=== PATIENT | male | born 1965 | race African-American/Black ===

== ENCOUNTER 2019-04-13 08:27 | Inpatient (IN) ==
[2019-04-13] MEDS ORDERED: ASPIRIN PO ONE (09:10)
--- NOTE | 2019-04-13 09:13 | EKG Report ---
Test Performed on : 04/13/2019 08:43:38 AM Test Reason : edema Blood Pressure : / mmHG Vent. Rate : 087 BPM Atrial Rate : 087 BPM P-R Int : 130 ms QRS Dur : 084 ms QT Int : 374 ms P-R-T Axes : 070 055 048 degrees QTc Int : 450 ms Normal sinus rhythm. Minimal voltage criteria for LVH, may be normal variant Nonspecific T wave abnormality Abnormal ECG When compared with ECG of 03-OCT-2014 23:53, Previous ECG has undetermined rhythm, needs review ST no longer elevated in Lateral leads Nonspecific T wave abnormality, worse in Inferior leads T wave inversion now evident in Anterior leads Unconfirmed Result
--- NOTE | 2019-04-13 09:49 | Diag Imaging Result Doc PS360 ---
EXAM: CHEST-2 VIEWS 04/13/2019 HISTORY: edema TECHNIQUE: PA and lateral chest COMMENT: There is no evidence of acute cardiac or pulmonary disease. There are no previous studies available for comparison. IMPRESSION: No acute disease. Electronically signed by Dewey Rael 04/13/2019 9:47 AM
[2019-04-13 09:50] LABS: BASO# 0.06 X1000 (0.0-0.2); BASO% 1.1 % (0.0-0.8); EOS# 0.01 X1000 (0.0-0.7); EOS% 0.2 % (0.0-10.0); HEMATOCRIT 48.4 % (42.0-52.0); HEMOGLOBIN 15.8 g/dL (14.0-18.0); LYMPH# 1.23 X1000 (1.2-3.4); LYMPH% 23.3 % (20.5-51.1); MCH 23.4 PG (27-31); MCHC 32.6 g/dL (33-37); MCV 71.8 FL (81-99); MONO# 0.38 X1000 (0.11-0.59); MONO% 7.2 % (1.7-9.3); MPV 12.7 FL (7.4-10.4); NEUT% 68.2 % (42.2-75.2); PLT 178 X1000 (130-400); RBC 6.74 XMIL (4.7-6.1); RDW 14.9 % (11.5-14.5); WBC 5.28 X1000 (4.8-10.8)
[2019-04-13 09:57] LABS: INR 0.99; PROTIME 13.2 Seconds (11.0-16.0)
[2019-04-13 09:58] LABS: PTT 26.5 Seconds (22.3-41.8)
[2019-04-13 10:33] LABS: CK PROFILE 151 U/L (24-204)
[2019-04-13 10:50] LABS: AGAP 13; ALB/GLOB RATIO 1.4; ALBUMIN 3.6 g/dL (3.5-5.0); ALKALINE PHOSPHATASE 125 U/L (32-122); BUN 14 mg/dL (8-22); CALCIUM 9.6 mg/dL (8.8-10.2); CHLORIDE 93 mmol/L (98-107); COSMO 300; CREATININE 1.1 mg/dL (0.7-1.2); ESTIMATED GFR > 60; GLUCOSE 601 mg/dL (70-104); GOT 27 U/L (10-34); GPT 49 U/L (10-44); POTASSIUM 4.6 mmol/L (3.5-5.1); SODIUM 136 mmol/L (136-145); TCO2 30 mmol/L (25-35); TOTAL BILIRUBIN 0.98 mg/dL (0.20-1.00); TOTAL PROTEIN 6.1 g/dL (6.3-8.3)
[2019-04-13] MEDS ORDERED: HUMULIN R IV ONE (10:54)
[2019-04-13 11:48] LABS: URINE SOURCE CLEAN CATCH
[2019-04-13 11:53] LABS: BILIRUBIN URINE NEGATIVE (NEGATIVE); BLOOD URINE NEGATIVE (NEGATIVE); COLOR YELLOW; GLUCOSE URINE >1000 mg/dL (NEGATIVE); KETONE URINE 10 mg/dL (NEGATIVE); LEUKOCYTES URINE NEGATIVE (NEGATIVE); NITRITE URINE NEGATIVE (NEGATIVE); PH URINE 6.5; PROTEIN URINE NEGATIVE (NEGATIVE); SP GRAVITY URINE 1.041; TURBIDITY URINE CLEAR (CLEAR); UROBILINOGEN URINE NORMAL (NORMAL)
[2019-04-13 11:58] LABS: UR EPITHELIAL CELLS <10 /HPF (<10); URINE BACTERIA NEGATIVE /HPF; URINE RBC <10 /HPF (<10); URINE WBC <10 /HPF (<10)
[2019-04-13] MEDS ORDERED: LASIX IV ONE (12:04)
[2019-04-13] MEDS ORDERED: TYLENOL PO PRN (13:40)
[2019-04-13] MEDS ORDERED: ZOFRAN IV PRN (13:40)
--- NOTE | 2019-04-13 15:13 | HISTORY AND PHYSICAL ---
PRIMARY CARE PROVIDER: Dr. Sophie Castro. CHIEF COMPLAINT: Lower extremity swelling. HISTORY OF PRESENT ILLNESS: Mr. Shaun Vera is a 53-year-old, male with a medical history of diabetes mellitus type 2 and hypertension. No history of congestive heart failure, but states back on 03/10/2019, he had a fall, twisted his ankle, and then at the beginning of the year had another fall, which he states was just from losing his balance and hit his knee, but since that time, he has noticed that he has had more swelling in his lower extremities. No swelling anywhere else. He denies having weight gain. Actually states that he has had a 20-pound weight loss since February. He states he has always slept with 2 pillows slightly elevated his whole life, that is nothing new. He went to Sophie Castro last week, who had noticed crackles, and had requested him to come to the emergency department, in which at that time, he did not, but since the swelling and the crackles had increased, he has presented. He denies having shortness of breath or productive cough. States he has been on disability, normally works as a security representative. PAST MEDICAL HISTORY: 1. Diabetes mellitus type 2. 2. Hypertension. PAST SURGICAL HISTORY: None. SOCIAL HISTORY: Denies tobacco, alcohol, or illicit drug use. He has got kids. He is not . He is a security representative, but currently on [employer]. Apparently, he had fallen at work. FAMILY HISTORY: Mother: Diabetes. Father: Diabetes, and he also had a heart attack in his 50s. ALLERGIES: No known drug allergies. HOME MEDICATIONS: Hydrochlorothiazide/lisinopril 20/12.5 mg 2 tablets p.o. daily, and states that he used to take 70/30 insulin, but was most recently prescribed an insulin that he states he could not afford. REVIEW OF SYSTEMS: A 14-point review of systems was complete, and all were negative, except for those mentioned in the above HPI. He denies any chest pain or palpitations. PHYSICAL EXAMINATION: VITAL SIGNS: Temperature 98.9 degrees, heart rate 115, respiratory rate 18, blood pressure 108/78, O2 saturation 100% on room air. Height 5 feet 11 inches tall, 200 pounds. GENERAL: Mr. Shaun Vera is a 53-year-old, male. He is in no acute distress. He is able to answer questions appropriately. HEENT: Atraumatic, normocephalic. Pupils equal, round, reactive to light. Extraocular movements intact. Mucous membranes are moist. NECK: Trachea midline. CARDIOVASCULAR: S1, S2. Tachycardic rate and rhythm. No rubs, gallops, or murmurs. He has got 3+ lower extremity pitting edema. Some JVD. Negative for carotid bruits. PULMONARY: Crackles noted to bilateral bases. No accessory muscle use or work of breathing noted. GASTROINTESTINAL: Soft, nontender, nondistended. Positive bowel sounds x4. EXTREMITIES: Moves all extremities, but decreased range of motion in the lower extremities. SKIN: Warm, dry, intact. NEUROLOGIC: A and O x3. Follows commands. Sensory is intact. LABORATORY DATA: White blood cells 5000, hemoglobin 15, hematocrit 48, platelet count 178,000. INR 0.99, PTT is 26.5. Sodium 136, potassium 4.6, BUN 14, creatinine is 1.1, glucose 601 (now down to 455), calcium 9.6, bilirubin 0.98, AST 27, ALT 49. CK 151. Troponin was 65 (it is down to 50). ProBNP 2857. Albumin 3.6. Urinalysis greater than 1000 glucose, 10 ketones, small acetone. IMAGING: Chest x-ray: No acute disease. EKG: Sinus rhythm, rate 87, QTc 450. ASSESSMENT AND PLAN: 1. Uncontrolled diabetes mellitus type 2. Hemoglobin A1c has been ordered. He received 12 units, which brought him from 601 to 455, and will start him on a sliding scale insulin, low dose for now, diabetic diet. States he was taking insulin, was prescribed an insulin recently that he could not before, but never called to have it changed, so he has been without insulin for over a week. 2. New signs and symptoms of congestive heart failure, diastolic versus systolic. He has got significant lower extremity edema. There are some crackles in the bases, but he denies shortness of breath. ProBNP is elevated. Will go ahead and get him started on some scheduled Lasix. Will get echocardiogram and Cardiology consult. 3. Hypertension. Continue hydrochlorothiazide/lisinopril. 4. Deep venous thrombosis prophylaxis. Lovenox. Dictated by OJSIAH Angel for Louie Bunn MD cc: JOSIAH Angel MD
[2019-04-13] MEDS ORDERED: HUMULIN R SUBQ SCH ×2 (16:00→21:00)
--- NOTE | 2019-04-13 16:20 | PROVIDER DOCUMENTATION ---
This chart was entered by Bing Khalil Scribe, acting as scribe for Ambika Cordero MD. HPI-General Adult - General Chief Complaint: Edema Stated Complaint: FLUID BUILD UP,WHEEZING,DIABETIC Time Seen by Provider: 04/13/19 09:57 Source: patient Allergies/Adverse Reactions: Patient Allergies Allergy/AdvReac Type Severity Reaction Status Date / Time No Known Allergies Allergy Verified 04/13/19 10:36 Home Medications: Home Medication List Medication Instructions Recorded Confirmed Last Taken Type LISINOpril/HCTZ [Prinzide 1 each PO DAILY 10/02/12 04/13/19 04/12/19 22:00 History 20/12.5MG] - History of Present Illness -Gen Adult Nature of Presenting Problems: 53yom presents to ED cc swelling of both lower legs &hands and increased urination. Pt reports he was seen by PCP/Dr. Christen Castro last week, she told pt she heard fluid around heart and wanted him to come to ED and be admitted but he wanted to wait until today. Pt denies F/C/SOB. Pt has hx of DM & HTN. Pt reports family hx of a brother who is currently on dialysis and dad has heart disease. Pt is nontoxic upon exam. Location of Pain/Injury: reports: hand(s) (both hands), lower extremity (both lower legs) Quality of Pain: reports: fullness Severity: reports: moderate Onset/Duration: reports: last week Timing: reports: still present, getting worse Context/Activities at Onset: reports: light activity Modifying Factors: improves with: nothing Associated Symptoms: reports: denies symptoms Similar Symptoms Previously?: Yes Recently seen or treated by another doctor?: Yes (saw PCP/ Dr. Christen Castro last week) Review of Systems - Adult - REVIEW OF SYSTEMS - ADULT Constitutional: reports: see HPI. denies: chills, fever, fatique Eyes: reports: no symptoms reported Ears, Nose, Mouth & Throat: reports: no symptoms reported Cardiovascular: reports: see HPI, edema. denies: chest pain, palpitations Respiratory: reports: see HPI. denies: shortness of breath Gastrointestinal: reports: no symptoms reported Genitourinary: reports: see HPI, frequency. denies: flank pain Musculoskeletal: reports: no symptoms reported Integumentary: reports: see HPI, other (swelling to both lower legs and hands) Neurological: reports: no symptoms reported Psychiatric: reports: no symptoms reported Endocrine: reports: no symptoms reported Hematologic/Lymphatic: reports: no symptoms reported Allergic/Immunologic: reports: no symptoms reported All Other Systems: Reviewed and Negative Past History - Adult - PAST MEDICAL HISTORY-ADULT Review of Records: reports: Nursing Assessment Review, Medications Reviewed, Social history reviewed & non-contributory. Major Childhood Illnesses: reports: denies history Cardiovascular: reports: HTN Respiratory: reports: denies history Gastrointestinal: reports: denies history Obstetrical/Gynecological: reports: denies history Genitourinary: reports: denies history Musculoskeletal: reports: denies history Neurological: reports: denies history Endocrine/Immune: reports: Diabetes Other Conditions: reports: denies history - PRIOR SURGERIES/PROCEDURES Surgical/Procedure History: reports: other (teeth extraction) - IMMUNIZATION STATUS Childhood Immunizations: See Nurse Assessment Flu Vaccine: See Nurse Assessment - FAMILY HISTORY Family History: reviewed, not pertinent Physical Exam-General - PHYSICAL EXAM-ADULT Initial Vital Signs Reviewed: Yes - CONSTITUTIONAL General Appearance: appears well, alert, no apparent distress. negative: anxious, combative - EYES Eyes: PERRL/EOMI, pink conjunctivae. negative: photophobia - HEAD, EARS, NOSE, MOUTH & THROAT HENMT: normocephalic/atraumatic, moist mucous membranes. negative: angioedema - NECK Neck: supple, normal inspection - RESPIRATORY Respiratory: chest non-tender, lungs clear, normal breath sounds, no pleuratic chest pain, no respiratory distress, no accessory muscle use. negative: crackles, rales, rhonchi, stridor, wheezing - CARDIOVASCULAR Cardiovascular: normal peripheral pulses, regular rate, rhythm, no edema, no gallop, no JVD, no murmur. negative: bradycardia, tachycardia - MUSCULOSKELETAL Extremity: swelling (3-4+ pitting edema to both lower legs up to knee). negative: deformity - SKIN Integumentary: normal color, normal turgor, warm/dry. negative: diaphoresis, jaundice, rash - PSYCHIATRIC Psych/Mental Status: normal mood/affect, oriented x 3. negative: anxious, disheveled Progress - PLAN OF CARE/RESULTS Progress/Plan/Lab Results: Vital Signs - 8 hr 04/13/19 08:36 Temperature 98.8 F Pulse Rate 93 H Respiratory Rate 19 Blood Pressure 129/89 O2 Sat by Pulse Oximetry 99 Laboratory Results - last 24 hr 04/13/19 04/13/19 04/13/19 09:25 09:25 09:25 WBC 5.28 RBC 6.74 H Hgb 15.8 Hct 48.4 MCV 71.8 L MCH 23.4 L MCHC 32.6 L RDW Std Deviation 14.9 H Plt Count 178 MPV 12.7 H Immature Gran % (Auto) 0.0 Neut % (Auto) 68.2 Lymph % (Auto) 23.3 Pitt % (Auto) 7.2 Eos % (Auto) 0.2 Baso % (Auto) 1.1 H Immature Gran # (Auto) 0.00 Neut # (Auto) 3.60 Lymph # (Auto) 1.23 Pitt # (Auto) 0.38 Eos # (Auto) 0.01 Baso # (Auto) 0.06 PT 13.2 INR 0.99 PTT (Actin FS) 26.5 Troponin T High Sens 65 H Orders Category Date Time Status Cardiac Monitoring DIRECTED Care 04/13/19 09:10 Active Oxygen Therapy- ED Nursing DIRECTED Care 04/13/19 09:10 Active Saline Loc NOW Care 04/13/19 09:10 Active CHEST-2 VIEWS [RAD] Stat Exams 04/13/19 09:10 Completed CBC WITH ELECTRONIC DIFF [HEME] Stat Lab 04/13/19 09:25 Completed CK PROFILE [SP CHEM] Stat Lab 04/13/19 09:25 Received COMPREHENSIVE METABOLIC PANEL [CHEM] Stat Lab 04/13/19 09:25 Received PRO B-NATRIURETIC PEPTIDE Stat Lab 04/13/19 09:25 Received PROTIME WITH INR [COAG] Stat Lab 04/13/19 09:25 Completed PTT [COAG] Stat Lab 04/13/19 09:25 Completed TROPONIN T HIGH SENSITIVITY Stat Lab 04/13/19 09:25 Completed Aspirin Med 04/13/19 09:10 Discontinued 325 mg PO NOW ONE CP/SOB/Palp >45 yrs of Age Stat Oth 04/13/19 09:10 Ordered EKG [EKG] Stat Ther 04/13/19 09:10 Draft Result Diagrams: 04/13/19 09:25 04/13/19 09:25 - EKG 1 Time of EKG reading by physician:: 08:43 EKG Read and Signed by:: Ambika Cordero EKG Interpretation (*Must complete 3 of following elements*): Abnormal (nonspecific T wave abnormality) Rate: 87 Rhythm: NSR QRS: LVH (minimal voltage) CO Interval: normal - XRAY 1 XRAY: Bilateral XRAY Study: Chest Impression: See EMR Report ( IMPRESSION: No acute disease. Electronically signed by Dewey Real 04/13/2019 9:47 AM) - CONSULTS/PCP/HOSPITALIST Notification #1 *Consult/PCP/Hospitalist*: 1300, JOSIAH Kelleya Time Discussed: 13:15 Consult Disposition: Admit Departure - Departure Date of Disposition Decision: 04/13/19 Time of Disposition Decision: 13:15 DIAGNOSIS: Elevated troponin Acute CHF (congestive heart failure) Qualifiers: Heart failure type: unspecified Qualified Code(s): I50.9 - Heart failure, unspecified Diabetes mellitus with hyperglycemia Qualifiers: Diabetes mellitus type: type 2 Diabetes mellitus terminal gauger insulin use: without terminal gauger use Qualified Code(s): E11.65 - Type 2 diabetes mellitus with hyperglycemia Disposition: ADMITTED INPATIENT 09 Certified Medical Emergency: Emergent Condition: Stable - Critical Care Note This patient required my direct & personal management of CC.: No Attestation - Physician/ QI Attestation Patient care was provided by Advanced Practice Provider:: No The physician spent face to face time with patient:: Yes Advanced Practice Provider documentation review:: Supervising physician onsite and consulted in the evaluation and care of this patient. The physician did have a face to face encounter with the patient. This chart was documented by the indicated scribe, (Bing Khalil Scribe) and accurately reflects the services I performed and decisions made by Gil zhang Tatiana M., MD, as attested by the provider's signature.
--- NOTE | 2019-04-13 16:50 | HISTORY AND PHYSICAL ---
ADDENDUM REPORT SUBJECTIVE: Patient has no major complaints. OBJECTIVE: Vital Signs: Blood pressure is 108/78, heart rate of 115, respiratory rate 18, temperature 98.9 degrees 100% on room air. Cardiovascular: Regular rate and rhythm. Pulmonary: Bilateral breath sounds clear to auscultation. Gastrointestinal: Soft, nontender, nondistended. Bowel sounds are positive. LABORATORY DATA: Sugar was 601. He does have some rales at the bases. He has got 2+ pitting edema, not a lot of protein in his urine, but clinically it looks like he has got heart failure. The chest x-ray does not show pulmonary edema despite an elevation of proBNP. EKG shows LVH which could certainly put him at risk for diastolic dysfunction. He is only on lisinopril hydrochlorothiazide. There is no listed p.o. medications. PROBLEM LIST: 1. Uncontrolled hyperglycemia due to noncompliance. He really has not been able to get followup, but he has missed appointments so he has not been able to be maintained on regular medications. We will continue medicines. He may benefit from metformin. I do think he will probably need insulin. We are doing sliding scale now. Until we have managed to rule out congestive heart failure I think we will probably have to wait on metformin until we know for sure there is nothing there. I will go ahead and start some glipizide in addition to sliding scale. 2. Rule out congestive heart failure. He has features of CHF, could be diastolic systolic. Agree with diuresis. Echo and we will continue to monitor. I am going to hold the hydrochlorothiazide until we know if there is renal failure and we will continue to monitor closely. cc: Louie Bunn MD
[2019-04-13] MEDS: GLUCOTROL PO SCH (16:52)
--- NOTE | 2019-04-13 17:34 | CARDIOLOGY CONSULTATION ---
DATE: 04/13/2019 HISTORY OF PRESENT ILLNESS: 53-year-old -[place]ian gentleman was admitted, has history of hypertension, diabetes. He states on 03/10/2019 he fell and twisted his ankle then at the beginning of the year had another fall from losing balance and hit his knee. He has been noticing increasing pedal edema which has been bilateral. He denies any weight gain. There is no orthopnea. He has noticed no chest pain. He was seen by his primary physician. Basal crackles were noted. He was sent to the emergency room and subsequently admitted. He denies having shortness of breath or productive cough. REVIEW OF SYSTEMS: A 14 point review of system was done:Gastrointestinal System: There is no history of nausea, vomiting, diarrhea. There is no history of hematemesis or melena. Central nervous system: No focal weakness to suggest a CVA, TIA. Genitourinary System: There is no dysuria or hematuria. PAST MEDICAL HISTORY: Hypertension, diabetes. PAST SURGICAL HISTORY: None. HOME MEDICATIONS: Include lisinopril hydrochlorothiazide 20/12.5 one tablet daily. FAMILY HISTORY: Mother had diabetes, father had diabetes. ALLERGIES: He is not known to be allergic to any medication. SOCIAL HISTORY: He denies tobacco or alcohol abuse. PHYSICAL EXAMINATION: Vital Signs: Blood pressure was 108/78. Cardiovascular: Jugular venous pressure was normal. First and second heart sounds were heard. There was no S3 gallop. Respiratory: Normal air entry. There are no crepitations and rhonchi at the present time. Mildly distant breath sounds. Abdomen: Soft, nontender. There was no guarding or rigidity. Bowel sounds were heard. Extremities: Examination of his extremities revealed bilateral pitting pedal edema 3+ to his knees. LABORATORY DATA: WBC 5000, hemoglobin 15, hematocrit 48, platelet count of 178,000. Sodium 138, potassium 4.6, BUN 14, creatinine 1.1. Glucose 600. When he was admitted, calcium 9.6, proBNP 2850. Urinalysis: Ketones 10+. Glucose 1000. Chest x-ray no acute disease. Electrocardiogram revealed normal sinus rhythm, nonspecific ST-T changes. ASSESSMENT: Mr. Shaun Vera is a 53-year-old Afro-[place]ian gentleman with history of diabetes, hypertension comes with complaints of increasing pedal edema which he however attributes to his fall and twisted ankle and hurting his knee. He has pitting bilateral edema. He was noted to have basal crackles by his family physician. PLAN: From a cardiac standpoint: 1. We will get an echocardiogram to assess cardiac and valvular function. 2. We will set him up to undergo a Lexiscan Cardiolite stress test to rule out and assess for ischemia. 3. He has got significant pedal edema and he has diabetes. We will make sure there is no diabetic nephropathy. We will set him up to undergo a 24-hour urine collection for proteins as well. His troponin T high sensitive and negative. 4. He was admitted with a blood sugar of 600. He is on insulin. He had been on that intermittently, however has not been taking it. We will recommend follow up with treatment of diabetes as planned. Thank you for the consult. We will follow hospital course. cc: Getachew Hemphill MD
[2019-04-13] MEDS: LASIX IV SCH (22:00)
[2019-04-13] MEDS: HUMULIN R SUBQ SCH (22:00)
[2019-04-14 05:03] LABS: BASO# 0.03 X1000 (0.0-0.2); BASO% 0.5 % (0.0-0.8); EOS# 0.04 X1000 (0.0-0.7); EOS% 0.7 % (0.0-10.0); HEMATOCRIT 41.2 % (42.0-52.0); HEMOGLOBIN 13.5 g/dL (14.0-18.0); LYMPH# 2.21 X1000 (1.2-3.4); MCH 23.6 PG (27-31); MCHC 32.8 g/dL (33-37); MCV 71.9 FL (81-99); MONO# 0.39 X1000 (0.11-0.59); MONO% 6.7 % (1.7-9.3); MPV 12.9 FL (7.4-10.4); NEUT# 3.14 X1000 (1.4-6.5); NEUT% 54.1 % (42.2-75.2); PLT 137 X1000 (130-400); RBC 5.73 XMIL (4.7-6.1); RDW 14.4 % (11.5-14.5); WBC 5.81 X1000 (4.8-10.8)
[2019-04-14 05:12] LABS: HEMOGLOBIN A1C 15.4 % (4.8-6.0)
[2019-04-14 05:24] LABS: AGAP 11; ALB/GLOB RATIO 1.2; ALBUMIN 2.6 g/dL (3.5-5.0); ALKALINE PHOSPHATASE 81 U/L (32-122); BUN 18 mg/dL (8-22); CALCIUM 8.4 mg/dL (8.8-10.2); CHLORIDE 95 mmol/L (98-107); COSMO 274; CREATININE 1.2 mg/dL (0.7-1.2); ESTIMATED GFR > 60; GLUCOSE 142 mg/dL (70-104); GOT 20 U/L (10-34); GPT 33 U/L (10-44); MAGNESIUM 1.8 mg/dL (1.5-2.7); POTASSIUM 4.2 mmol/L (3.5-5.1); SODIUM 135 mmol/L (136-145); TCO2 29 mmol/L (25-35); TOTAL PROTEIN 4.7 g/dL (6.3-8.3)
[2019-04-14 05:32] LABS: LYMPHS 38 % (21-51); MONO 5 % (1-9); SEGS 57 % (42-75)
[2019-04-14] MEDS: HUMULIN R SUBQ SCH ×4 (06:58→23:32)
[2019-04-14] MEDS ORDERED: PRINZIDE 20/12.5MG PO SCH (09:00)
[2019-04-14] MEDS ORDERED: PRINIVIL PO SCH (09:00)
[2019-04-14] MEDS ORDERED: LEXISCAN ONE (09:42)
--- NOTE | 2019-04-14 11:13 | Diag Imaging Result Doc PS360 ---
EXAM: CHEST-2 VIEWS HISTORY: sob TECHNIQUE: Two views COMPARISON: 04/13/2019 FINDINGS: The lungs are well expanded except for minimal atelectasis in the left costophrenic angle. The heart is not enlarged. The vessels are not distended. There are no infiltrates. No pleural effusions. IMPRESSION: Minimal left basilar atelectasis. Electronically signed by Wayne Chaves 04/14/2019 11:11 AM
[2019-04-14] MEDS: LASIX IV SCH ×2 (11:38→23:32)
[2019-04-14] MEDS: LOVENOX SUBQ SCH (11:39)
[2019-04-14] MEDS: GLUCOTROL PO SCH (11:39)
--- NOTE | 2019-04-14 15:00 | Diag Imaging Result Document ---
PROCEDURE NAME: MYOCARDIAL PERF SCAN, STR/REST - 04/14/2019 SUMMARY: The patient was administered 14.1 mCi of technetium-99m sestamibi, after which resting cardiac images were obtained. The patient was subsequently administered Lexiscan 0.4 mg intravenous, after which the heart rate went from 89 beats per minute to 98 beats per minute, and the blood pressure went from 90/66 to 97/64. With Lexiscan, the patient denied chest discomfort. Following the administration of Lexiscan, the patient was administered 40.3 mCi of technetium-99m sestamibi, after which gated stress cardiac images were obtained. Baseline ECG demonstrated sinus rhythm. Minimal voltage criteria for left ventricular hypertrophy and nonspecific ST-T wave abnormality. With Lexiscan, baseline ST-T wave abnormality did not change significantly. SPECT images were reconstructed in the short, horizontal long, and vertical long axis. Review of these images demonstrated mildly diminished activity in the basal inferior wall on stress images, with resting images showing moderately diminished activity in the basal to mid inferior wall. There is also mildly diminished activity in the anteroapical region of the left ventricle on stress images, which improves on resting images. SPECT images suggest significant left ventricular enlargement. Gated images demonstrate a calculated left ventricular ejection fraction of 26% with global hypokinesis. CONCLUSIONS: 1. Adequate response to Lexiscan. 2. Clinically negative for chest pain. 3. Electrocardiographically, baseline ST-T wave abnormality did not change following the administration of Lexiscan. 4. Lexiscan sestamibi images demonstrate nonreversible mildly diminished activity in the basal inferior wall, and mild reversibility in the anterior apical region of the left ventricle. Mild inducible ischemia in the anterior apical region is suggested. Left ventricular enlargement with calculated left ventricular ejection fraction of 26% demonstrated in the setting of global hypokinesis. Clinical correlation recommended. cc: MD Halina Napoles PA
--- NOTE | 2019-04-14 20:30 | ECHO REPORT ---
ORDER DATE: 04/13/2019 MEASUREMENTS: Septal thickness 1.0, left ventricular internal diameter end-diastole 6.2, posterior wall thickness 1.0, left ventricular internal diameter end-systole 5.4, aortic root 3.6, left atrium 4.9. SUMMARY: 1. Fair quality study. 2. Aortic valve is trileaflet and opens normally on 2-dimensional images. The peak gradient across the aortic valve is less than 5 mmHg. Mitral, tricuspid and pulmonic valves are without evidence of structural abnormality, with mild mitral regurgitation, mild tricuspid regurgitation, and trace pulmonic insufficiency. The estimated systolic PA pressure by Doppler is 45 to 50 mmHg, suggesting mild to moderate pulmonary hypertension. The aortic root is normal. 3. Mild to moderate left ventricular enlargement with normal wall thickness demonstrated. Estimated left ventricular ejection fraction approximately 25% in the setting of global hypokinesis. Moderate left atrial enlargement is demonstrated. Right atrium and right ventricle are grossly normal in size. 4. No pericardial effusion. 5. Appearance of inferior vena cava suggests elevated central venous pressure. cc: MD Pamela Napoles CRNP
--- NOTE | 2019-04-14 22:37 | PROGRESS NOTE ---
DATE: 04/14/2019 SUBJECTIVE: Breathing is better, but still has some shortness of breath and swelling in his extremities. OBJECTIVE: Blood pressure 95/62, heart rate 95, respiratory rate 18, temperature 97.8 degrees, 100% on room air. Cardiovascular: Regular rate and rhythm. Pulmonary: Bilateral breath sounds. Clear to auscultation. Gastrointestinal: Soft, nontender, nondistended. Bowel sounds are positive. Extremities: No clubbing or cyanosis. Lymphatic: No peripheral edema. Neurological: Nonfocal. LABORATORY DATA: White count 5, hemoglobin and hematocrit 13 and 41, MCV 71, platelets 137,000. Basic was normal. Blood sugar 249. A1c of 15.4. Troponins were still not positive. CK is negative. PROBLEM LIST: 1. Acute congestive heart failure exacerbation, systolic presumably. We will continue diuresis and follow. We will add Coreg, decrease lisinopril, and follow. Cardiology following. 2. Type 2 diabetes. Still not under control. We will resume insulin and follow closely. He has been noncompliant which has led to his elevated blood sugar. 3. Hypertension. We will continue to monitor. Hold hydrochlorothiazide because of the fact that he is on Lasix and we will continue to monitor. DISPOSITION: Pending clinical status and cardiac workup. Appreciate Cardiology consultation and monitor. cc: Louie Bunn MD MTDLeah
[2019-04-15 05:44] LABS: UR AMPHETAMINES QUAL NONE DETECTED (NONE DETECT); UR BARBITUATES QUAL NONE DETECTED (NONE DETECT); UR BENZODIAZEPIN QUAL NONE DETECTED (NONE DETECT); UR CANNABINOIDS QUAL NONE DETECTED (NONE DETECT); UR COCAINE QUAL NONE DETECTED (NONE DETECT); UR METHADONE QUAL NONE DETECTED (NONE DETECT); UR OPIATES QUAL NONE DETECTED (NONE DETECT); UR OXYCODONE QUAL NONE DETECTED (NONE DETECT); UR PCP QUAL NONE DETECTED (NONE DETECT)
[2019-04-15] MEDS: HUMULIN R SUBQ SCH ×4 (06:50→20:04)
[2019-04-15 07:06] LABS: BASO# 0.01 X1000 (0.0-0.2); BASO% 0.2 % (0.0-0.8); EOS# 0.03 X1000 (0.0-0.7); EOS% 0.5 % (0.0-10.0); HEMATOCRIT 42.9 % (42.0-52.0); LYMPH# 2.13 X1000 (1.2-3.4); LYMPH% 36.8 % (20.5-51.1); MCH 23.5 PG (27-31); MCHC 32.6 g/dL (33-37); MCV 72.1 FL (81-99); MONO# 0.47 X1000 (0.11-0.59); MONO% 8.1 % (1.7-9.3); MPV 12.5 FL (7.4-10.4); NEUT# 3.15 X1000 (1.4-6.5); NEUT% 54.4 % (42.2-75.2); PLT 141 X1000 (130-400); RBC 5.95 XMIL (4.7-6.1); RDW 14.5 % (11.5-14.5); WBC 5.79 X1000 (4.8-10.8)
[2019-04-15 07:32] LABS: AGAP 10; ALBUMIN 2.6 g/dL (3.5-5.0); ALKALINE PHOSPHATASE 81 U/L (32-122); BUN 21 mg/dL (8-22); CHLORIDE 94 mmol/L (98-107); COSMO 271; CREATININE 1.1 mg/dL (0.7-1.2); ESTIMATED GFR > 60; GLUCOSE 59 mg/dL (70-104); GOT 27 U/L (10-34); GPT 32 U/L (10-44); MAGNESIUM 1.9 mg/dL (1.5-2.7); POTASSIUM 3.7 mmol/L (3.5-5.1); SODIUM 135 mmol/L (136-145); TCO2 31 mmol/L (25-35); TOTAL PROTEIN 5.1 g/dL (6.3-8.3)
[2019-04-15] MEDS: HUMULIN 70/30 SUBQ SCH ×2 (08:12→16:38)
[2019-04-15] MEDS: GLUCOTROL PO SCH (08:34)
[2019-04-15] MEDS: LOVENOX SUBQ SCH (08:34)
[2019-04-15] MEDS: LASIX IV SCH (08:37)
[2019-04-15] MEDS ORDERED: PRINIVIL PO SCH (09:00)
[2019-04-15] MEDS: COREG PO SCH ×2 (11:25→20:09)
[2019-04-15] MEDS ORDERED: DOBUTAMINE 250 MG/D5W 250 MG/250 ML IV.SOLN IV SCH (14:00)
[2019-04-15] MEDS: DOBUTAMINE 250 MG/D5W 250 MG/250 ML IV.SOLN IV SCH (18:00)
--- NOTE | 2019-04-15 18:07 | PROGRESS NOTE ---
DATE: 04/15/2019 SUBJECTIVE: Patient has no major complaints. OBJECTIVE: His blood pressures been on the low side at 86/67, heart rate of 100, respiratory rate of 19, temperature 99.2, and 100 percent on room air. Cardiovascular: Regular rate and rhythm. Pulmonary: Bilateral breath sounds. Clear to auscultation. GI: Soft, nontender, and nondistended. Bowel sounds are positive. LABORATORY DATA: White count 5, hemoglobin and hematocrit 14 and 42, and platelets 141,000. Basic was normal. Sugar 59 and 250. PROBLEM LIST: 1. Acute congestive heart failure exacerbation systolic. We will drop his diuretics. I have stopped his Coreg and lisinopril. I have discussed with Dr. Hemphill to see if we can try to get his diuresis up a little bit. We will use a dobutamine infusion and follow. 2. Type 2 diabetes. We will continue insulin, and follow closely. It may need to adjust accordingly. 3. Hypertension is no longer an issue. He is hypotensive. We will continue to follow. He is getting a 24 hour urine to evaluate for nephrotic syndrome. cc: Louie Bunn MD
[2019-04-16] MEDS: HUMULIN R SUBQ SCH ×4 (06:42→21:10)
[2019-04-16] MEDS: HUMULIN 70/30 SUBQ SCH ×2 (06:42→16:49)
[2019-04-16 06:47] LABS: AGAP 8; ALB/GLOB RATIO 1.2; ALBUMIN 2.6 g/dL (3.5-5.0); ALKALINE PHOSPHATASE 74 U/L (32-122); BUN 20 mg/dL (8-22); CALCIUM 7.8 mg/dL (8.8-10.2); CHLORIDE 95 mmol/L (98-107); COSMO 270; CREATININE 0.9 mg/dL (0.7-1.2); ESTIMATED GFR > 60; GLUCOSE 189 mg/dL (70-104); GOT 19 U/L (10-34); GPT 26 U/L (10-44); MAGNESIUM 1.8 mg/dL (1.5-2.7); POTASSIUM 3.8 mmol/L (3.5-5.1); SODIUM 131 mmol/L (136-145); TCO2 28 mmol/L (25-35); TOTAL PROTEIN 4.8 g/dL (6.3-8.3)
[2019-04-16 07:11] LABS: BASO# 0.02 X1000 (0.0-0.2); BASO% 0.3 % (0.0-0.8); EOS# 0.03 X1000 (0.0-0.7); EOS% 0.5 % (0.0-10.0); HEMATOCRIT 40.5 % (42.0-52.0); HEMOGLOBIN 13.1 g/dL (14.0-18.0); LYMPH# 1.88 X1000 (1.2-3.4); LYMPH% 29.5 % (20.5-51.1); MCH 23.9 PG (27-31); MCHC 32.3 g/dL (33-37); MCV 73.8 FL (81-99); MONO# 0.71 X1000 (0.11-0.59); MONO% 11.1 % (1.7-9.3); MPV 12.9 FL (7.4-10.4); NEUT# 3.73 X1000 (1.4-6.5); NEUT% 58.6 % (42.2-75.2); PLT 118 X1000 (130-400); RBC 5.49 XMIL (4.7-6.1); RDW 14.4 % (11.5-14.5); WBC 6.37 X1000 (4.8-10.8)
[2019-04-16 08:29] LABS: EOS 1 % (1-10); LYMPHS 26 % (21-51); MONO 8 % (1-9); SEGS 65 % (42-75)
[2019-04-16] MEDS: COREG PO SCH ×2 (09:02→21:06)
[2019-04-16] MEDS: LOVENOX SUBQ SCH (09:03)
[2019-04-16] MEDS: GLUCOTROL PO SCH (09:03)
[2019-04-16] MEDS: DOBUTAMINE 250 MG/D5W 250 MG/250 ML IV.SOLN IV SCH (11:31)
[2019-04-16] MEDS: LASIX PO SCH (14:14)
[2019-04-16] MEDS: ASPIRIN PO SCH (14:14)
--- NOTE | 2019-04-16 14:30 | PROGRESS NOTE ---
DATE: 04/16/2019 SUBJECTIVE: Patient has no major complaints. OBJECTIVE: Blood pressure 101/74, heart rate 100, respiratory rate 22 95% on room air. Cardiovascular: Regular rate and rhythm. Pulmonary: Bilateral breath sounds clear to auscultation. GI: Soft, nontender, nondistended. Bowel sounds were positive. White count 6, hemoglobin and hematocrit 13 and 40, platelets 118,000. Sodium 131, glucose 283, calcium 7.8. PROBLEM LIST: 1. Acute systolic congestive heart failure exacerbation. We will continue treatment. I believe they have adjusted his medicines. He is on aspirin and oral Lasix. The dobutamine will be there until tomorrow and I think they are planning for a left heart catheterization tomorrow. I agree with the lisinopril 5 daily to resume now that his blood pressure is better, probably from the positive inotrope. I appreciate cardiology input. They are pursuing left heart catheterization to evaluate for ischemic heart disease. 2. Type 2 diabetes. We will continue to adjust his blood sugars. Right now, he is on glipizide and 70/30 with 20 units. His sugars have been okay. He did have a low one yesterday but they are still a little bit on the high side so I am going to titrate up on his 70/30. 3. Disposition. Waiting on left heart catheterization results. It may be another day or two. Continue to follow closely. cc: MD CAR Barrera
--- NOTE | 2019-04-16 16:02 | Extremity Venous Study ---
PROCEDURE NAME: Venous U/S Bilateral Legs - 04/13/2019 REQUESTING PHYSICIAN: Dr. Leos. INDICATIONS: Swelling. FINDINGS: Deep and superficial veins bilateral lower extremities visualized along their course. The vessels were compressible with maintained flow, and no evidence of intraluminal thrombus. At each location especially proximal there was pulsatility to the venous flow which would suggest some degree of more proximal or central venous hypertension. There was subcutaneous edema noted in the bilateral calves. IMPRESSION: No deep or superficial venous thrombosis with pulsatile venous flow to suggest more central venous hypertension. Would recommend correlation clinically. cc: MD Pamela Patel CRNP
[2019-04-16] MEDS ORDERED: MAALOX PLUS LIQUID PO ONE (22:54)
[2019-04-16] MEDS ORDERED: PRILOSEC PO ONE (22:54)
[2019-04-16] MEDS ORDERED: TUMS PO PRN (22:54)
[2019-04-17] MEDS: HUMULIN R SUBQ SCH ×4 (06:46→22:19)
[2019-04-17] MEDS: HUMULIN 70/30 SUBQ SCH ×2 (06:46→16:08)
[2019-04-17 07:44] LABS: BASO# 0.01 X1000 (0.0-0.2); BASO% 0.1 % (0.0-0.8); EOS# 0.07 X1000 (0.0-0.7); HEMATOCRIT 42.1 % (42.0-52.0); HEMOGLOBIN 13.6 g/dL (14.0-18.0); IMM GRAN# 0.02 X1000 (0.0-0.04); IMM GRAN% 0.3 % (0.0-0.5); LYMPH# 2.11 X1000 (1.2-3.4); LYMPH% 30.4 % (20.5-51.1); MCH 23.8 PG (27-31); MCHC 32.3 g/dL (33-37); MCV 73.7 FL (81-99); MONO# 0.61 X1000 (0.11-0.59); MONO% 8.8 % (1.7-9.3); MPV 12.1 FL (7.4-10.4); NEUT# 4.11 X1000 (1.4-6.5); NEUT% 59.4 % (42.2-75.2); PLT 130 X1000 (130-400); RBC 5.71 XMIL (4.7-6.1); RDW 14.1 % (11.5-14.5); WBC 6.93 X1000 (4.8-10.8)
[2019-04-17 08:02] LABS: PROTIME 13.3 Seconds (11.0-16.0)
[2019-04-17 08:11] LABS: AGAP 7; ALBUMIN 2.8 g/dL (3.5-5.0); ALKALINE PHOSPHATASE 73 U/L (32-122); BUN 15 mg/dL (8-22); CHLORIDE 97 mmol/L (98-107); COSMO 269; CREATININE 0.9 mg/dL (0.7-1.2); ESTIMATED GFR > 60; GLUCOSE 129 mg/dL (70-104); GOT 20 U/L (10-34); GPT 24 U/L (10-44); MAGNESIUM 2.1 mg/dL (1.5-2.7); POTASSIUM 4.7 mmol/L (3.5-5.1); SODIUM 133 mmol/L (136-145); TCO2 29 mmol/L (25-35); TOTAL BILIRUBIN 2.12 mg/dL (0.20-1.00); TOTAL PROTEIN 5.5 g/dL (6.3-8.3)
[2019-04-17] MEDS ORDERED: HEPARIN 1000 UNITS/NS 2,000 UNIT/1,000 ML IV.SOLN ONE (08:26)
[2019-04-17] MEDS ORDERED: CLAVE TWINSITE 32 IN 11959 ONE (08:50)
[2019-04-17] MEDS ORDERED: ANESTHESIA PB SET 88 IN 5742 ONE (08:50)
[2019-04-17] MEDS ORDERED: VERSED ONE (08:50)
[2019-04-17] MEDS ORDERED: MORPHINE ONE (08:50)
[2019-04-17] MEDS ORDERED: NS 1,000 ML ONE (08:50)
[2019-04-17] MEDS: PRINIVIL PO SCH (10:51)
[2019-04-17] MEDS: GLUCOTROL PO SCH (11:19)
[2019-04-17] MEDS: LASIX PO SCH (11:19)
[2019-04-17] MEDS: ASPIRIN PO SCH (11:19)
[2019-04-17] MEDS: PRILOSEC PO SCH (11:19)
[2019-04-17] MEDS: LOVENOX SUBQ SCH (11:20)
--- NOTE | 2019-04-17 12:07 | EKG Report ---
Test Performed on : 04/17/2019 10:53:58 AM Test Reason : s/p heart cath Blood Pressure : / mmHG Vent. Rate : 094 BPM Atrial Rate : 094 BPM P-R Int : 136 ms QRS Dur : 090 ms QT Int : 390 ms P-R-T Axes : 061 032 098 degrees QTc Int : 487 ms Normal sinus rhythm. Minimal voltage criteria for LVH, may be normal variant T wave abnormality, consider anterior ischemia Prolonged QT Abnormal ECG When compared with ECG of 13-APR-2019 08:43, (Unconfirmed) Nonspecific T wave abnormality, worse in Lateral leads Confirmed by Ezequiel SEPULVEDA, Cruz Pro ([id number]) on 04/19/2019 9:24:31 AM
[2019-04-17] MEDS: COREG PO SCH ×2 (13:35→22:19)
--- NOTE | 2019-04-17 14:24 | PROGRESS NOTE ---
DATE: 04/17/2019 S: Pt has no major complaints; no chest pain. CV: RRR no m/g/r PULM: CTA-B GI: soft NT/ND BS:+ LABORATORY DATA: H.9, hemoglobin and hematocrit 13 and 42, platelets 130,000. Coags okay. Sodium is 133, T bilirubin of 2. PROBLEM LIST: 1. Acute systolic congestive heart failure exacerbation. We will continue Lasix. He has been placed on aspirin. He is on Coreg. He has just completed a dobutamine infusion for 48 hours, and we will continue to follow. Left heart catheterization, at least preliminarily, did not show any significant obstructive coronary artery disease, so this is likely cardiomyopathy related to hypertension or idiopathic causes. Continue to follow. 2. Type 2 diabetes. His blood sugars have stabilized. We will continue to monitor on his current regimen. DISPOSITION: I anticipate discharge soon at the discretion of Cardiology. We will continue to follow. cc: Louie Bunn MD MTDD
[2019-04-17 18:04] LABS: UR CREATININE 40.1 mg/dL (14-26); UR PROTEIN 4.6 mg/dL
[2019-04-17 18:05] LABS: UR CREATININE TOTAL 1002.5 mg/24 (800-1800)
[2019-04-17 18:06] LABS: CREATININE 0.9 mg/dL (0.7-1.2)
[2019-04-17 18:46] LABS: URINE GLUCOSE TOTAL 33.9 mg/24 (0.0-0.5)
[2019-04-18] MEDS ORDERED: INSULIN PEN NEEDLES ONE (06:13)
[2019-04-18] MEDS: PRILOSEC PO SCH (06:15)
[2019-04-18] MEDS: HUMULIN 70/30 SUBQ SCH (06:16)
[2019-04-18] MEDS: HUMULIN R SUBQ SCH ×2 (06:16→11:39)
[2019-04-18 08:27] LABS: BASO# 0.02 X1000 (0.0-0.2); BASO% 0.2 % (0.0-0.8); EOS# 0.09 X1000 (0.0-0.7); HEMATOCRIT 42.2 % (42.0-52.0); HEMOGLOBIN 13.4 g/dL (14.0-18.0); IMM GRAN# 0.02 X1000 (0.0-0.04); IMM GRAN% 0.2 % (0.0-0.5); LYMPH# 2.04 X1000 (1.2-3.4); LYMPH% 23.7 % (20.5-51.1); MCH 23.8 PG (27-31); MCHC 31.8 g/dL (33-37); MCV 75.1 FL (81-99); MONO# 0.57 X1000 (0.11-0.59); MONO% 6.6 % (1.7-9.3); MPV 12.7 FL (7.4-10.4); NEUT# 5.88 X1000 (1.4-6.5); NEUT% 68.3 % (42.2-75.2); PLT 141 X1000 (130-400); RBC 5.62 XMIL (4.7-6.1); RDW 14.3 % (11.5-14.5); WBC 8.62 X1000 (4.8-10.8)
[2019-04-18 08:58] LABS: AGAP 10; ALB/GLOB RATIO 1.1; ALKALINE PHOSPHATASE 87 U/L (32-122); BUN 15 mg/dL (8-22); CALCIUM 8.4 mg/dL (8.8-10.2); CHLORIDE 93 mmol/L (98-107); COSMO 260; CREATININE 0.8 mg/dL (0.7-1.2); ESTIMATED GFR > 60; GLUCOSE 110 mg/dL (70-104); GOT 22 U/L (10-34); GPT 25 U/L (10-44); MAGNESIUM 1.8 mg/dL (1.5-2.7); POTASSIUM 4.6 mmol/L (3.5-5.1); SODIUM 129 mmol/L (136-145); TCO2 26 mmol/L (25-35); TOTAL BILIRUBIN 2.27 mg/dL (0.20-1.00); TOTAL PROTEIN 5.7 g/dL (6.3-8.3)
[2019-04-18] MEDS: LASIX PO SCH (10:00)
[2019-04-18] MEDS: PRINIVIL PO SCH (10:00)
[2019-04-18] MEDS: ASPIRIN PO SCH (10:00)
[2019-04-18] MEDS: GLUCOTROL PO SCH (10:01)
[2019-04-18] MEDS: COREG PO SCH (10:01)
[2019-04-18] MEDS: LOVENOX SUBQ SCH (10:12)
[2019-04-18] MEDS ORDERED: SAMSCA PO ONE (12:43)
[2019-04-18 15:28] VITALS: BP 110/93
--- NOTE | 2019-04-18 19:53 | DISCHARGE SUMMARY ---
ADMISSION DATE: 04/13/2019 DISCHARGE DATE: 04/18/2019 DISCHARGE DIAGNOSES: 1. Acute congestive heart failure (CHF), systolic exacerbation. 2. Type 2 diabetes. 3. History of hypertension but not here. CONSULTATIONS: Dr. Hemphill, Cardiology. HISTORY: This is a 53-year-old male of Dr. Castro, hypertension, diabetes, who came in with elevated blood sugars, but he also had weight gain, lower extremity edema, PND, orthopnea, blood sugar over 600. He apparently had been on insulin. The patient also came in with heart failure symptoms. His echocardiogram showed an EF of 25%. It was a dilated cardiomyopathy, PA pressures consistent with [id number] pulmonary hypertension at 45 to 50 mmHg. The patient was diuresed, cardiology was consulted and they recommended 24 hour urine protein, evaluate for nephrotic syndrome. His Lexiscan showed some diminished activity in the basal inferior wall, reversibility anterior apical and anterior apical ischemia. EF again 26%, consistent with echocardiogram. He ended up undergoing a cardiac catheterization, which I still do not have the report from, Dr. Romero though verbally described there was nonobstructive CAD somewhere in the 10 to 15% range. His blood sugars improved with insulin, still not quite under control but he had 170s, 200s. I also put him on glipizide. I was a little reluctant to use metformin because of his heart failure diagnosis. In any case, he was cleared by Cardiology and felt stable to go home. We did education on sodium restriction 2 g a day, fluid restriction 2 L a day, weighing himself daily and he will be discharged home. He had a low sodium, but most likely related to diuretics. DISCHARGE MEDICATIONS: Coreg 3.125 b.i.d., glipizide 5 daily, 70/30 we will do 26 units b.i.d., Lasix 40 daily, lisinopril 5 daily. He is going to stop his hydrochlorothiazide. His blood pressure has been on the low side, but has maintained 90s to 100 teens. He was on a dobutamine drip when his blood pressures were low related to his diuresis and he tolerated that well. That was all done prior to his catheterization. He will need to follow up with Dr. Castro in a week or so. I would check his labs at that time, sodium also, [facility], Dr. Hemphill, in 2 to 4 weeks. TIME SPENT: 32 minute discharge. cc: Louie Bunn MD
--- NOTE | 2019-04-21 16:30 | CARDIAC CATH REPORT ---
DATE OF PROCEDURE: 04/21/2019 PROCEDURE: Left heart catheterization with selective coronary angiography and left ventriculography. ENTRY SITE: Right femoral artery. CATHETERS USED: A 5-Kazakh JL-5, 3DRC, AR modified and angled pigtail. TECHNIQUE: After intravenous sedation with Versed and morphine, local anesthesia with lidocaine was applied over right femoral artery. Arterial access was established with placement of a 5- Kazakh sheath in the right femoral artery using modified Seldinger technique. Selective coronary angiography was performed followed by left heart catheterization, left ventriculography. Upon completion of procedure, arterial sheath was removed from right femoral artery and hemostasis facilitated with manual pressure. The patient tolerated the procedure without apparent complications. FINDINGS: Hemodynamics: Aortic pressure 80/61 with a mean of 70, left ventricular pressure 82 over EDP of 29. Comments on hemodynamics: There is no significant gradient across aortic valve demonstrated on pullback from left ventricle. Angiography: 1. Left ventriculogram. The left ventricle is mildly enlarged with severe global hypokinesis on PRO projection and estimated ejection fraction approximately 15%. There is no significant mitral regurgitation. 2. Left main coronary. Left main coronary artery is angiographically normal. 3. Left anterior descending coronary. The left anterior descending coronary artery and its branches are free of significant coronary stenosis. 4. Left circumflex coronary. The left circumflex coronary artery, its branches are free of significant coronary stenosis. 5. Right coronary. The right coronary is dominant and has a somewhat anterior takeoff from the aorta. Right coronary branches are free of significant coronary stenosis. CONCLUSIONS: 1. Elevated left ventricular end-diastolic pressure. 2. Severe nonischemic cardiomyopathy with left ejection fraction approximately 15%. 3. Right dominant coronary anatomy with no significant coronary obstructive lesions. cc: Gurwinder Romero MD
== END 2019-04-18 17:58 | disposition home or self-care (01) | DRG 286 ==
LOC: ED 08:27 → 4N 13:55 → 2N 04-15 15:31 → 3N 04-17 18:37
PROVIDERS: ATTEND Internal Medicine